=== PATIENT | male | born 1990 | race Caucasian/White ===

== ENCOUNTER 2022-04-05 09:40 | Observation (INO) ==
[2022-04-05] MEDS ORDERED: SODIUM CHLORIDE 0.9% 1000ML 1,000 ML IV STA (10:18)
[2022-04-05 10:41] LABS: Basophils # (auto) 0.02 K/uL (0-0.2); Basophils % (auto) 0.3 %; Eosinophils # (auto) 0.02 K/uL (0-0.5); Eosinophils % (auto) 0.3 %; Hematocrit (blood only) 45.6 % (42-52); Immature Granulocytes # (auto) 0.02 K/uL (0.00-0.02); Immature Granulocytes % (auto) 0.3 %; Lymphocytes % (auto) 15.5 %; Mean Corpuscular Hemoglobin 30.7 pg (25-34); Mean Corpuscular Hgb Conc 37.3 g/dL (32-36); Mean Corpuscular Volume 82.5 fL (80-100); Mean Platelet Volume 10.7 fL (7.4-10.4); Monocytes # (auto) 0.79 K/uL (0.11-0.59); Monocytes % (auto) 10.2 %; Neutrophils % (auto) 73.4 %; Platelet Count 286 K/uL (130-400); RDW Coefficient of Variation 12.6 % (11.5-14.5); RDW Standard Deviation 38.1 fL (36.4-46.3); Red Blood Count 5.53 M/uL (4.7-6.1); White Blood Count 7.75 K/uL (4.8-10.8)
[2022-04-05 10:52] LABS: Albumin Globulin Ratio 1.7 (0.9-2); Albumin Level 4.8 gm/dl (3.4-5.0); BUN Creatinine Ratio 15.8 (10-20); Bilirubin,Total 2.9 mg/dl (0.2-1.0); Calcium 10.1 mg/dl (8.5-10.1); Creatinine Clr Calc Pharmacy 114.5 ml/min; Est GFR (African American) 91.5 ml/min; Globulin 2.8 gm/dl (2.5-4.0); Potassium 3.6 mmol/L (3.5-5.1); Total Protein 7.6 gm/dl (6.0-8.3)
[2022-04-05 11:05] LABS: Appearance Urine Clear (Clear); Bacteria Urine Automated Negative (Negative); Bilirubin Urine 2+ (Negative); Blood Urine Negative (Negative); Color Urine Dark Yellow; Glucose Urine UA Negative (Negative); Ketones Urine 3+ (Negative); Leukocyte Esterase Urine Trace (Negative); Nitrite Urine Negative (Negative); Protein Urine 1+ (Negative); RBC Urine Automated 0-4 /hpf (0-4); Specific Gravity Urine 1.031 (1.000-1.030); Urobilinogen Urine Negative (Negative)
[2022-04-05 11:38] LABS: Amphetamines+Metham, Urine Neg (Neg); Barbiturates, Urine Neg (Neg); Benzodiazepine, Urine Neg (Neg); Cocaine, Urine Neg (Neg); MDMA (Ecstacy), Urine Neg (Neg); Methadone, Urine Neg (Neg); Opiate, Urine Neg (Neg); Phencyclidine, Urine Neg (Neg)
[2022-04-05] MEDS ORDERED: PROCHLORPERAZINE 2 ML IV ONE (13:42)
[2022-04-05] MEDS ORDERED: diphenhydrAMINE 50 MG/ML VIAL IV STA (13:42)
--- NOTE | 2022-04-05 14:34 | History & Physical Report ---
Date of Service April 05, 2022 Assessment & Plan (1) Abdominal pain, acute, epigastric: Plan: - With ongoing, intractable n/v. Ongoing since February, with temporary resolution, and recurrence ~2 weeks ago. - T. bili 2.9, D bili 0.5. AST 26, ALT 47. Lipase 99. No leukocytosis. Repeat GB U/S and CT A/P without acute findings. - We will keep patient n.p.o., provide IVF for hydration, as needed medications for nausea/vomiting/pain. Would consider HIDA scan tomorrow if possible. He does have scheduled pt to see GI this Wednesday. - Also ordered a troponin, given T wave inversions on EKG from 03/30. It is 5.2. Repeat EKG today with resolution of T wave inversions, therefore I believe EKG findings can be attributed to his hypokalemia, as he has not been experiencing chest pain/tightness/palpitations. (2) Cannabis use disorder, mild, abuse: Plan: - Habitual user, but last use > 1 week ago due to concerns for cannabis induced hyperemesis. - UDS positive for marijuana, neg for all other substances. - encourage continued abstinence as this is likely a partial cause for his intractable n/v. (3) Anxiety: Plan: - Continue venlafaxine. Plan: - Admit to med/surg. - SCDs for dvt ppx. defer on chemoppx given age, mobility. - Full Code. History of Present Illness Chief Complaint: intractable nausea and vomiting Primary Care Provider: Dayron Mi Mr. Pacheco is a 32-year-old male with past medical history of anxiety and chronic medical marijuana use who presents today for the fourth time in two weeks with ongoing, intractable nausea and vomiting. This all began with some general abdominal pain and nausea/vomiting at the end of February, at that time patient suspected he may have a stomach bug. This eventually subsided, however over the past 10 days or so he has had recurrence of his symptoms. He is vomiting several times throughout the day, after both solid and liquid intake. Vomiting usually occurs fairly quickly after meal, but has occurred in the absence of a recent meal as well. He is usually able to keep some water down if he drinks it slowly, but even Gatorade or Pedialyte upset his stomach and come back up. Has not had fevers at home, but feels he may have had chills intermittently. He has been discharged from our ED with thao Pineda, which he states does not help much . The only thing that seems to give him relief is taking several hot showers a day. He does report longstanding medical marijuana use, however one of his visits here, he was told this may be marijuana induced hyperemesis so he has not used it in over 1 week, unfortunately symptoms have not resolved. No change to bowel movements, he states he has IBS and frequently does have diarrhea, there may have been several bowel movements that were dark green, but for the most part they are normal for him. He states he had stomach ulcers as a kid, but has not had any blood in his vomit or stools. Recent medication changes he continues to take his venlafaxine daily. In ED, his VS are wnl and stable. Labs significant for t. bili 2.9 and lipase 99, LFTS wnl. UA with ketones, bilirubin, and hyaline casts. Allergies Allergy/AdvReac Type Severity Reaction Status Date / Time Seasonal Allergy Intermediate itchy Uncoded 04/05/22 11:35 eyes, sneeze,runny nose Home Medications Medication Instructions Recorded Confirmed Type famotidine 10 mg tablet (Pepcid AC) 10 mg PO BID PRN #28 tab 03/25/22 04/05/22 Rx loratadine 10 mg tablet (Claritin) 10 mg PO DAILY PRN 03/25/22 04/05/22 History ondansetron 4 mg disintegrating 4 mg PO Q8H PRN #10 tab 03/25/22 04/05/22 Rx tablet venlafaxine 75 mg capsule,extended 75 mg PO QAM 03/25/22 04/05/22 History release 24 hr potassium chloride 20 mEq 20 meq PO QAM 04/05/22 04/05/22 History tablet,extended release Past Med/Surg History Medical History Anxiety disorder, unspecified Cannabis use disorder, mild, abuse Elevated liver enzymes Surgical History Hanna teeth removed Family History Denies family history of Ovarian cancer Prostate cancer Myocardial infarction Breast cancer Colorectal cancer Social History Smoking Status: Former smoker Tobacco Type: Cigarettes Hx Alcohol Use: Yes Alcohol type: beer Hx Substance Use: No Preferred Language: Togolese Communication Ability: Effective Visual Impairment: No Limitations Hearing Ability: Normal marital status: Current Living Situation: Spouse current occupational status: employed current occupation: [employer] Feels Safe at Home: Yes Childhood Exposure to Second-Hand Smoke: No Dental Care, Regularly: Yes Physical Activity Frequency: 3-4 Times per Week Seatbelt Use: always Sunscreen Use: Yes Review of Systems Review of Systems: Constitutional: chills; no weakness, fatigue, myalgias, anorexia, night sweats Eyes: No diplopia, no worsening or blurred vision ENT: normal hearing, no trouble swallowing Respiratory: No cough, sputum, dyspnea at rest or on exertion Cardiovascular: No chest pain, tightness or palpitations Abdomen: abdominal pain with nausea, nonbloody emesis; no constipation or diarrhea : Denies dysuria, hematuria, increased urgency/frequency, urinary retention Musculoskeletal: No joint pain, calf pain, swelling Neurologic: No weakness, numbness/tingling, or balance problems Psychiatric: No anxiety or depression Skin: No rash or itch Physical Exam Physical Exam: General: awake, alert, no apparent distress Head: Normocephalic, atraumatic ENT: PERRL, EOMI, no pharyngeal exudate, mucous membranes moist Chest: Clear to auscultation, on room air, no adventitious breath sounds Cardiac: Regular rate and rhythm, no murmur, no JVD, normal peripheral pulses, good capillary refill Abdominal: TTP in epigastric, LUQ region without rebound or guarding; NABS x 4 quadrants, soft, otherwise nontender to palpation Extremities: Normal inspection, no peripheral edema or erythema, calfs nontender to palpation Psych: Normal mood and affect Neuro: AAO x 3, strength intact bilaterally and rated 5/5, no motor deficits, speech is clear, no peripheral sensory deficits Skin: no rash or erythema Results & Data Results & Data ([facility]) Vital Signs (Past 12 Hours) Vital Signs Temp Pulse Pulse Resp BP BP Pulse Ox 04/05/22 12:00 83 18 116/88 100 05/29/22 10:41 82 17 123/82 99 04/05/22 10:05 36.7 C 105 H 18 133/85 97 Laboratory Results Abnormal lab results 04/05/22 04/05/22 04/05/22 Range/Units 10:30 10:30 10:55 MCHC 37.3 H (32-36) g/dL MPV 10.7 H (7.4-10.4) fL [place] # (Auto) 0.79 H (0.11-0.59) K/uL Sodium 134 L (136-145) mmol/L Glucose 106 H (70-99(Fasting)) mg/dl Total Bilirubin 2.9 H (0.2-1.0) mg/dl Lipase 99 H (11-82) U/L Ur Specific Blunt 1.031 H (1.000-1.030) Urine Protein 1+ H (Negative) Urine Ketones 3+ H (Negative) Urine Bilirubin 2+ H (Negative) Ur Leukocyte Esterase Trace H (Negative) U Hyaline Cast (Auto) 10-30 H (0-5) /lpf U Epithel Cells (Auto) 10-20 H (0-5) /lpf Granular Casts 1-5 H (0) /lpf U Marijuana (THC) Screen (Neg) 04/05/22 Range/Units 10:55 MCHC (32-36) g/dL MPV (7.4-10.4) fL [place] # (Auto) (0.11-0.59) K/uL Sodium (136-145) mmol/L Glucose (70-99(Fasting)) mg/dl Total Bilirubin (0.2-1.0) mg/dl Lipase (11-82) U/L Ur Specific Blunt (1.000-1.030) Urine Protein (Negative) Urine Ketones (Negative) Urine Bilirubin (Negative) Ur Leukocyte Esterase (Negative) U Hyaline Cast (Auto) (0-5) /lpf U Epithel Cells (Auto) (0-5) /lpf Granular Casts (0) /lpf U Marijuana (THC) Screen Pos H (Neg) ECG Additional Comments: Normal sinus rhythm Normal ECG When compared with ECG of 30-MAR-2022 17:58, No significant change was found. T wave inversions previously seen on EKG from 03/30 no longer present. Code Status & VTE Plan Code Status full code. VTE Prophylaxis Plan VTE Prophylaxis will be ordered: Yes Supervising Physician Co-Signing Physician Notes PA Supervision Note: I personally saw and examined the patient. I verified all dockery points and agree with SHARRI Kaufman with the following exceptions and/or additions: This patient is a 32-year-old male with history of anxiety disorder and cannabis use disorder who presents to the ER for the fourth time in 11 days with intractable nausea/vomiting and epigastric pain. He has had elevated bilirubin each time, and on 03/30 had significant elevated AST and ALT as well. He has no known history of liver issues and his right upper quadrant ultrasound and CT abdomen/pelvis on 03/25 were normal however they were not repeated on 03/30 when his LFTs were worse. He has quit vaping marijuana since this all started but has still not had any relief. No fevers or chills. Rest of HPI as outlined above. History and ROS reviewed as above O- Vitals reviewed Gen: AAOx3, NAD, somewhat overweight HEENT: Anicteric sclerae, EOMI CV: RRR no mgr nl S1S2 Pulm: CTAB no wcr Abd: +BS soft mild TTP in epigastric and LUQ regions without guarding or rebound tenderness, ND no masses or hernias Ext: No edema, 2+ DP pulses Skin: No rashes, warm/dry Neuro: Full strength throughout Labs, rads, ECG reviewed A/P-this patient is a 32-year-old male here with persistent and intractable nausea/vomiting as well as epigastric abdominal pain and elevated LFTs. Repeat CT abdomen/pelvis and right upper quadrant ultrasounds here are normal. It is possible he is having gastritis versus less likely acute cholecystitis given he is afebrile, no leukocytosis, and no evidence of such on imaging. Increase Protonix to twice daily As for his hyperbilirubinemia, a direct bilirubin was added on and was only minimally elevated at 0.5, therefore making this mostly indirect hyperbilirubinemia. This could be consistent with Gilbert's syndrome although that would not cause the AST and ALT be elevated like it was on 03/30. It is possible that he could be having some sort of hemolysis, although his hemoglobin is normal making that less likely. Follow LFTs in the morning and consider adding on LDH and haptoglobin if hemoglobin decreases. Consider HIDA scan but not sure if this is possible and holiday weekend. No antibiotics needed at this time. Start capsaicin cream in case of cannabis hyperemesis syndrome PG Care Time/CCT Total # of Minutes Spent Total Time Spent with Patient: Total time spent is greater than 50% in coordination of care (as documented) at patient's floor/unit and/or counseling patient: Coding Level of Care Code INT OBSERVATION CARE 50M LVL 2 Diagnoses Anxiety F41.9 Cannabis use disorder, mild, abuse F12.10 Abdominal pain, acute, epigastric R10.13
--- NOTE | 2022-04-05 15:40 | Ultrasound Report ---
ULTRASOUND RIGHT UPPER QUADRANT ABDOMEN CLINICAL HISTORY: Nausea and vomiting. Elevated hepatic transaminases. COMPARISON STUDY: Abdominal CT dated 03/25/2022 patchy abdominal ultrasound dated 03/25/2022. TECHNIQUE: Real-time, grayscale, and color flow sonography of the right upper quadrant of the abdomen was performed. Images are reviewed in the transverse and longitudinal planes. FINDINGS: Liver: The liver is normal in size and demonstrates heterogeneously increased echotexture indicating steatosis. Fatty sparing is seen adjacent to gallbladder fossa. There is no intrahepatic biliary duct al dilatation. The main portal vein is patent. Gallbladder: Small gallbladder polyps measure up to 5 mm. The gallbladder is otherwise normal in appe arance. No shadowing gallstones are identified. There is no gallbladder wall thickening or pericholec ystic fluid. A sonographic Salcedo's sign is reportedly absent. The common bile duct measures up to 0. 4 cm in diameter. Pancreas: Not visualized due to overlying bowel gas. Right kidney: Survey images of the right kidney demonstrate normal size and echotexture. There is no hydronephrosis. Ascites: None. IMPRESSION: 1. No acute sonographic abnormality is seen in the right upper quadrant. No shadowing gallstones are identified. 2. Hepatic steatosis. 3. Small gallbladder polyps measure up to 5 mm. 4. Nonvisualization of the pancreas. ACT 112: Negative or not required by law. Electronically signed by: Juliocesar Pierre M.D. 04/05/2022 3:39 PM
--- NOTE | 2022-04-05 15:44 | Emergency Department Note ---
History of Present Illness General Chief complaint: Vomiting Stated complaint: VOMITTING FOR THE PAST 4 DAYS Time Seen by Provider: 04/05/22 10:17 History of Present Illness This 32-year-old male patient presents to the emergency department today for evaluation of ongoing nausea and vomiting. This has been present for about 10 days. This is his fourth ED visit for the same. Symptoms were thought to have been due to cannabinoid hyperemesis, as the patient recently changed a cartridge for his medical marijuana used for anxiety just prior to the onset of his symptoms. He has not used any further marijuana in almost 2 weeks, but his symptoms have persisted. The patient does seem to get some relief with hot showers and capsaicin cream. He has been prescribed Pepcid and Zofran which she is using regularly without significant improvement. He is scheduled to see GI on Wednesday due to elevated LFTs and bilirubin, but with his ongoing symptoms, inability to keep down food and fluids, even Gatorade or Pedialyte, he decided to come to the ED again for repeat evaluation. Patient denies any fever. He d enies any specific abdominal pain. No new symptoms. No recent injury. Patient states at the present time, he is not feeling "too bad". He notes he has not had any vomiting upon arrival, and that he generally only vomits after he eats or drinks, but does tolerate water if he sips that extremely slowly. Home Medications Medication Instructions Recorded Confirmed Type famotidine 10 mg tablet (Pepcid AC) 10 mg PO BID PRN #28 tab 03/25/22 04/05/22 Rx loratadine 10 mg tablet (Claritin) 10 mg PO DAILY PRN 03/25/22 04/05/22 History ondansetron 4 mg disintegrating 4 mg PO Q8H PRN #10 tab 03/25/22 04/05/22 Rx tablet venlafaxine 75 mg capsule,extended 75 mg PO QAM 03/25/22 04/05/22 History release 24 hr potassium chloride 20 mEq 20 meq PO QAM 04/05/22 04/05/22 History tablet,extended release Allergies Allergy/AdvReac Type Severity Reaction Status Date / Time Seasonal Allergy Intermediate itchy Uncoded 04/05/22 11:35 eyes, sneeze,runny nose Past Med/Surg History Medical History Anxiety disorder, unspecified Cannabis use disorder, mild, abuse Elevated liver enzymes Surgical History [place] teeth removed Family History Denies family history of Ovarian cancer Prostate cancer Myocardial infarction Breast cancer Colorectal cancer Social History Smoking Status: Former smoker Tobacco Type: Cigarettes Hx Alcohol Use: Yes Alcohol type: beer Hx Substance Use: No Preferred Language: Portuguese Communication Ability: Effective Visual Impairment: No Limitations Hearing Ability: Normal marital status: Current Living Situation: Spouse current occupational status: employed current occupation: Document Coordinator Feels Safe at Home: Yes Childhood Exposure to Second-Hand Smoke: No Dental Care, Regularly: Yes Physical Activity Frequency: 3-4 Times per Week Seatbelt Use: always Sunscreen Use: Yes Review of Systems A total of 10 systems reviewed and were otherwise negative Physical Exam Vital Signs Vital Signs - 24 hr 04/05/22 10:05 04/05/22 10:41 04/05/22 12:00 Temperature 36.7 C Temperature Source Temporal Artery Scan Pulse Rate 105 H Pulse Rate [Apical] 82 83 Respiratory Rate 18 17 18 Respiratory Depth Normal Normal Blood Pressure 133/85 Blood Pressure [Right Arm] 123/82 116/88 Blood Pressure Mean 101 Blood Pressure Mean [Right Arm] 95 97 Pulse Oximetry 97 99 100 Oxygen Delivery Method Room Air Room Air Room Air Sepsis New/Unexplained Change in Mental Status No Sepsis Action Taken by Nursing No Action Required 04/05/22 15:09 Temperature Temperature Source Pulse Rate Pulse Rate [Apical] 76 Respiratory Rate 18 Respiratory Depth Blood Pressure Blood Pressure [Right Arm] 125/81 Blood Pressure Mean Blood Pressure Mean [Right Arm] 95 Pulse Oximetry 98 Oxygen Delivery Method Room Air Sepsis New/Unexplained Change in Mental Status Sepsis Action Taken by Nursing VITALS: Vitals are noted on the nurse's note and reviewed by myself. Vital signs stable. GENERAL: This is a 32-year-old white male, in no acute distress, nondiaphoretic, well-developed well-nourished. SKIN: The skin was without rashes, erythema, edema, or bruising. There is no tenting of the skin. Capillary refill less than 2 seconds. HEAD: Normocephalic atraumatic. EYES: Conjunctivae without injection, sclerae without icterus. MOUTH: Mucous membranes moist. Tonsils are not enlarged. Pharynx without erythema or exudate. Uvula midline. Airway patent. Tongue does not deviate. NECK: Supple without nuchal rigidity. No lymphadenopathy. No JVD. HEART: Regular rate and rhythm without murmurs gallops or rubs. LUNGS: Clear to auscultation bilaterally without wheezes, rales or rhonchi. No retractions or accessory muscle use. ABDOMEN: Positive bowel sounds x 4. Soft, nontender, without masses or organomegaly. Salcedo sign negative. No guarding or rebound tenderness. MUSCULOSKELETAL: No muscle atrophy, erythema, or edema noted. Full range of motion without joint tenderness in all extremities. No tenderness to palpation. Normal gait. Strength 5/5 throughout. NEURO: Patient was alert and oriented to person place and time. No focal neurological deficits. Course Course The patient was seen and evaluated as above. An order was placed for continuous cardiac monitoring. The monitor shows a normal sinus rhythm at a rate of 76 bpm. IV access obtained, labs drawn. Patient medicated with IV fluids. Labs reviewed by myself. I discussed the findings with the patient at bedside. Recommended admission. Patient was agreeable. He is complaining of increased nausea at this time. He was medicated with Benadryl and Compazine, as he notes this seems to have helped in the past. I discussed the case with my attending. I discussed case with the line manager I discussed the case with Dr. Haile, [facility] hospitalist physician. She did agree to see and evaluate the patient for admission. Please see hospitalist dictation regarding ongoing management and care of this patient Administered Medications Discontinued Medications Sodium Chloride (Nss 1000ml) 1,000 mls @ 999 mls/hr IV .Q1H1M STA Stop: 04/05/22 11:18 Last Infusion: 04/05/22 14:50 Dose: 0 mls/hr Documented by: [id number] Admin: 04/05/22 11:15 Dose: 999 mls/hr Documented by: [id number] Medical Decision Making Differential Diagnosis Gastroenteritis, food borne illness, infections, appendicitis, diverticulitis, inflammatory bowel disease, obstruction, GI bleed, biliary pathology, volvulus, cannabinoid hyperemesis, as well as other pathologies. Medical Records Attestation: I reviewed the patient's medical records. Home Medications Current Medication List: was personally reviewed by me Laboratory Data Attestation: I reviewed the patient's lab results. No leukocytosis, anemia, thrombocytopenia. Renal, hepatic function, and electrol ytes without significant abnormality. Total bilirubin is elevated at 2.9. This is down from most recent total bilirubin test completed last week. Lipase mildly elevated at 99. Urinalysis with 3+ ketones, no bacteria, 2+ bilirubin. UDS positive for marijuana. COVID-19 testing negative. Result diagrams: 04/05/22 10:30 04/05/22 10:30 Lab Results 04/05/22 04/05/22 04/05/22 Range/Units 10:30 10:30 10:55 WBC 7.75 (4.8-10.8) K/uL RBC 5.53 (4.7-6.1) M/uL Hgb 17.0 (14.0-18.0) g/dL Hct 45.6 (42-52) % MCV 82.5 (80-100) fL MCH 30.7 (25-34) pg MCHC 37.3 H (32-36) g/dL RDW Std Deviation 38.1 (36.4-46.3) fL RDW Coeff of Lani 12.6 (11.5-14.5) % Plt Count 286 (130-400) K/uL MPV 10.7 H (7.4-10.4) fL Immature Gran % (Auto) 0.3 % Neut % (Auto) 73.4 % Lymph % (Auto) 15.5 % Forrest % (Auto) 10.2 % Eos % (Auto) 0.3 % Baso % (Auto) 0.3 % Neut # (Auto) 5.70 (1.4-6.5) K/uL Lymph # (Auto) 1.20 (1.2-3.4) K/uL Forrest # (Auto) 0.79 H (0.11-0.59) K/uL Eos # (Auto) 0.02 (0-0.5) K/uL Baso # (Auto) 0.02 (0-0.2) K/uL Immature Gran # (Auto) 0.02 (0.00-0.02) K/uL Sodium 134 L (136-145) mmol/L Potassium 3.6 (3.5-5.1) mmol/L Chloride 98 (98-107) mmol/L Carbon Dioxide 25 (21-32) mmol/L Anion Gap 11 (3-11) BUN 19 (6-23) mg/dl Creatinine 1.20 (0.6-1.4) mg/dl Est Cr Clr Drug Dosing 114.5 ml/min Est GFR ( Amer) 91.5 ml/min Est GFR (Non-Af Amer) 79.0 ml/min BUN/Creatinine Ratio 15.8 (10-20) Glucose 106 H (70-99(Fasting)) mg/dl Calcium 10.1 (8.5-10.1) mg/dl Total Bilirubin 2.9 H (0.2-1.0) mg/dl AST 26 (13-39) U/L ALT 47 (7-52) U/L Alkaline Phosphatase 52 (34-104) U/L Total Protein 7.6 (6.0-8.3) gm/dl Albumin 4.8 (3.4-5.0) gm/dl Globulin 2.8 (2.5-4.0) gm/dl Albumin/Globulin Ratio 1.7 (0.9-2) Lipase 99 H (11-82) U/L Urine Color Dark Yellow Urine Appearance Clear (Clear) Urine pH 5.0 (4.5-7.5) Ur Specific [place] 1.031 H (1.000-1.030) Urine Protein 1+ H (Negative) Urine Glucose (UA) Negative (Negative) Urine Ketones 3+ H (Negative) Urine Blood Negative (Negative) Urine Nitrite Negative (Negative) Urine Bilirubin 2+ H (Negative) Urine Urobilinogen Negative (Negative) Ur Leukocyte Esterase Trace H (Negative) Urine WBC (Auto) 1-5 (0-5) /hpf Urine RBC (Auto) 0-4 (0-4) /hpf U Hyaline Cast (Auto) 10-30 H (0-5) /lpf U Epithel Cells (Auto) 10-20 H (0-5) /lpf Urine Bacteria (Auto) Negative (Negative) Granular Casts 1-5 H (0) /lpf Urine Opiates Screen (Neg) Ur Methadone, Qual (Neg) Urine Barbiturates (Neg) Ur Phencyclidine (PCP) (Neg) U Amphetamin/Meth Scrn (Neg) MDMA (Ecstasy) Screen (Neg) U Benzodiazepines Scrn (Neg) Ur Cocaine Metabolite (Neg) U Marijuana (THC) Screen (Neg) SARS-CoV-2, RNA, NAAT (NEGATIVE) 04/05/22 04/05/22 Range/Units 10:55 14:42 WBC (4.8-10.8) K/uL RBC (4.7-6.1) M/uL Hgb (14.0-18.0) g/dL Hct (42-52) % MCV (80-100) fL MCH (25-34) pg MCHC (32-36) g/dL RDW Std Deviation (36.4-46.3) fL RDW Coeff of Lani (11.5-14.5) % Plt Count (130-400) K/uL MPV (7.4-10.4) fL Immature Gran % (Auto) % Neut % (Auto) % Lymph % (Auto) % Forrest % (Auto) % Eos % (Auto) % Baso % (Auto) % Neut # (Auto) (1.4-6.5) K/uL Lymph # (Auto) (1.2-3.4) K/uL Forrest # (Auto) (0.11-0.59) K/uL Eos # (Auto) (0-0.5) K/uL Baso # (Auto) (0-0.2) K/uL Immature Gran # (Auto) (0.00-0.02) K/uL Sodium (136-145) mmol/L Potassium (3.5-5.1) mmol/L Chloride (98-107) mmol/L Carbon Dioxide (21-32) mmol/L Anion Gap (3-11) BUN (6-23) mg/dl Creatinine (0.6-1.4) mg/dl Est Cr Clr Drug Dosing ml/min Est GFR ( Amer) ml/min Est GFR (Non-Af Amer) ml/min BUN/Creatinine Ratio (10-20) Glucose (70-99(Fasting)) mg/dl Calcium (8.5-10.1) mg/dl Total Bilirubin (0.2-1.0) mg/dl AST (13-39) U/L ALT (7-52) U/L Alkaline Phosphatase (34-104) U/L Total Protein (6.0-8.3) gm/dl Albumin (3.4-5.0) gm/dl Globulin (2.5-4.0) gm/dl Albumin/Globulin Ratio (0.9-2) Lipase (11-82) U/L Urine Color Urine Appearance (Clear) Urine pH (4.5-7.5) Ur Specific [place] (1.000-1.030) Urine Protein (Negative) Urine Glucose (UA) (Negative) Urine Ketones (Negative) Urine Blood (Negative) Urine Nitrite (Negative) Urine Bilirubin (Negative) Urine Urobilinogen (Negative) Ur Leukocyte Esterase (Negative) Urine WBC (Auto) (0-5) /hpf Urine RBC (Auto) (0-4) /hpf U Hyaline Cast (Auto) (0-5) /lpf U Epithel Cells (Auto) (0-5) /lpf Urine Bacteria (Auto) (Negative) Granular Casts (0) /lpf Urine Opiates Screen Neg (Neg) Ur Methadone, Qual Neg (Neg) Urine Barbiturates Neg (Neg) Ur Phencyclidine (PCP) Neg (Neg) U Amphetamin/Meth Scrn Neg (Neg) MDMA (Ecstasy) Screen Neg (Neg) U Benzodiazepines Scrn Neg (Neg) Ur Cocaine Metabolite Neg (Neg) U Marijuana (THC) Screen Pos H (Neg) SARS-CoV-2, RNA, NAAT NEGATIVE (NEGATIVE) Blood Pressure Blood Pressure Findings: Normal blood pressure MDM Narrative This 32-year-old male patient presents to the emergency department today for evaluation of ongoing nausea and vomiting. This has been persistent for almost 2 weeks. It is believed to be due to cannabinoid hyperemesis, as it began right after he changed his most recent cartridge for his medical marijuana he uses for anxiety. Patient has had some elevated transaminases and bilirubin. He was referred to gastroenterology and is scheduled to see them in 2 days, but due to his ongoing/persistent nausea, vomiting, and inability to keep down any food or fluids except for minimal amounts of water, it was felt that he would likely benefit from inpatient care. The patient was agreeable with this plan. He was hydrated with IV fluids and medicated with Compazine and Benadryl. Please see hospitalist dictation regarding ongoing management care of this patient. The chart was completed utilizing [employer] Speech voice recognition software. Grammatical errors, random word insertions, pronoun errors, and incomplete sentences are an occasional consequence of this system due to software limitations, ambient noise, and hardware issues. Any formal questions or concerns about the content, text, or information contained within the body of this dictation should be directly addressed to the provider for clarification. Impression & Plan Nausea & vomiting, Cannabis use disorder, mild, abuse Discharge Plan Visit Data Chief Complaint: Vomiting Stated Complaint: VOMITTING FOR THE PAST 4 DAYS ED Provider: Vasquez Hector ED Midlevel Provider: Edwige Candelaria Discharge Problem: Nausea & vomiting, Cannabis use disorder, mild, abuse Patient Disposition: Admitted As Inpatient Forms Stand Alone Forms: [facility] Prescriptions Prescriptions: No Action potassium chloride 20 mEq tablet extended release 20 meq PO QAM RF: 0 venlafaxine 75 mg capsule,extended release 24hr 75 mg PO QAM RF: 0 loratadine [Claritin] 10 mg Tablet 10 mg PO DAILY PRN (Reason: Seasonal allergies) RF: 0 famotidine [Pepcid AC] 10 mg tablet 10 mg PO BID PRN (Reason: reflux) Qty: 28 RF: 0 ondansetron 4 mg tablet,disintegrating 4 mg PO Q8H PRN (Reason: nausea and vomiting) Qty: 10 RF: 0 Referrals Referrals: Dayron Mi [Primary Care Provider] -
[2022-04-05 15:50] LABS: Troponin I High Sensitivity 5.2 pg/ml (0-20)
[2022-04-05 15:55] LABS: Bilirubin Direct 0.5 mg/dl (0-0.2)
[2022-04-05] MEDS ORDERED: OPTIRAY 320 100ml IV ONE (16:12)
--- NOTE | 2022-04-05 16:28 | CT Scan Report ---
CT SCAN OF THE ABDOMEN AND PELVIS WITH IV CONTRAST CLINICAL HISTORY: Nausea and vomiting. COMPARISON STUDY: Abdominal CT dated 03/25/2022. TECHNIQUE: Following the IV administration of 94 cc of Optiray 320, CT scan of the abdomen and pelvi s is performed from the lung bases to the proximal femora. Images are reviewed in the axial, sagittal , and coronal planes. IV contrast was administered without complication. A dose lowering technique wa s utilized adhering to the principles of ALARA. CT DOSE: 844.24 mGy.cm FINDINGS: Lung bases: The heart is normal in size and without pericardial effusion. The lung bases are clear. Liver: The contrast-enhanced liver is normal in size and contour. Question mild steatosis. There is n o intrahepatic biliary ductal dilatation. The hepatic veins and portal veins are patent. Gallbladder: Unremarkable. Spleen: Normal in size and attenuation. Pancreas: Unremarkable. Adrenal glands: Unremarkable. Kidneys: The contrast enhanced kidneys are normal in size and without hydronephrosis. The kidneys enh ance symmetrically. Abdominal vasculature: The abdominal aorta is normal in course and caliber. Bowel: There is no bowel obstruction. The appendix is well-visualized and normal. Peritoneum: There is no intraperitoneal free air or abdominal ascites. Lymphadenopathy: None. Pelvic viscera: The bladder, prostate, and seminal vesicles are normal as visualized. Skeletal structures: No lytic or blastic lesions are seen. IMPRESSION: No acute infectious or inflammatory findings are identified in the abdomen or pelvis. No change from 03/25/2022. ACT 112: Negative or not required by law. Electronically signed by: Juliocesar Pierre M.D. 04/05/2022 4:25 PM
[2022-04-05] MEDS ORDERED: PANTOprazole 40 MG in SYRINGE 0 ML IV ONE (16:29)
[2022-04-05] MEDS ORDERED: CAPSAICIN CR 0.075% 60 GM TUBE EXT PRN (17:42)
[2022-04-05] MEDS ORDERED: POLYETHYLENE (MIRALAX) 17 GM PACK PO PRN (17:42)
[2022-04-05] MEDS ORDERED: PROMETHAZINE HCL 25 MG in SODIUM CHLORIDE 0.9% 50 ML IV PRN (17:42)
[2022-04-05] MEDS ORDERED: ONDANSETRON INJ 2 MG/ML 2 ML VIAL IV PRN (17:42)
[2022-04-05] MEDS ORDERED: LORazepam 0.5 MG TAB PO STA (17:57)
[2022-04-05] MEDS: LACTATED RINGER'S 1,000 ML IV SCH (18:05)
[2022-04-05] MEDS: PANTOprazole 40 MG in SYRINGE 0 ML IV SCH (21:09)
[2022-04-05] MEDS ORDERED: MELATONIN 3 MG TAB PO PRN (23:06)
[2022-04-06] MEDS: LACTATED RINGER'S 1,000 ML IV SCH ×2 (01:32→08:11)
[2022-04-06 06:02] LABS: Basophils # (auto) 0.04 K/uL (0-0.2); Basophils % (auto) 0.6 %; Eosinophils # (auto) 0.11 K/uL (0-0.5); Eosinophils % (auto) 1.6 %; Hematocrit (blood only) 41.6 % (42-52); Hemoglobin 15.2 g/dL (14.0-18.0); Immature Granulocytes # (auto) 0.02 K/uL (0.00-0.02); Immature Granulocytes % (auto) 0.3 %; Lymphocytes # (auto) 1.11 K/uL (1.2-3.4); Lymphocytes % (auto) 16.5 %; Mean Corpuscular Hemoglobin 30.3 pg (25-34); Mean Corpuscular Hgb Conc 36.5 g/dL (32-36); Mean Corpuscular Volume 82.9 fL (80-100); Mean Platelet Volume 10.6 fL (7.4-10.4); Monocytes # (auto) 0.81 K/uL (0.11-0.59); Neutrophils # (auto) 4.64 K/uL (1.4-6.5); Platelet Count 215 K/uL (130-400); RDW Coefficient of Variation 12.8 % (11.5-14.5); RDW Standard Deviation 38.3 fL (36.4-46.3); Red Blood Count 5.02 M/uL (4.7-6.1); White Blood Count 6.73 K/uL (4.8-10.8)
--- NOTE | 2022-04-06 06:31 | Electrocardiogram Report ---
Test Reason : Blood Pressure : / mmHG Vent. Rate : 072 BPM Atrial Rate : 072 BPM P-R Int : 136 ms QRS Dur : 090 ms QT Int : 402 ms P-R-T Axes : 031 018 -01 degrees QTc Int : 440 ms Normal sinus rhythm Normal ECG When compared with ECG of 30-MAR-2022 17:58, Nonspecific T wave abnormality Lateral leads no longer present Confirmed by Tom Cook ([id number]) on 04/06/2022 6:30:54 AM Referred By: REFERRED SELF Confirmed By:Tom Cook
[2022-04-06 06:38] LABS: Albumin Level 4.1 gm/dl (3.4-5.0); BUN Creatinine Ratio 14.2 (10-20); Bilirubin Direct 0.5 mg/dl (0-0.2); Bilirubin,Total 3.1 mg/dl (0.2-1.0); Calcium 9.2 mg/dl (8.5-10.1); Creatinine Clr Calc Pharmacy 129.6 ml/min; Est GFR (African American) 106.4 ml/min; Est GFR (Non-African American) 91.8 ml/min; Magnesium 1.9 mg/dl (1.7-2.4); Potassium 3.1 mmol/L (3.5-5.1); Total Protein 6.3 gm/dl (6.0-8.3)
[2022-04-06] MEDS ORDERED: POTASSIUM CHLORIDE CRTAB 20 MEQ TABCR PO STA (08:14)
[2022-04-06] MEDS: PANTOprazole 40 MG in SYRINGE 0 ML IV SCH (08:17)
--- NOTE | 2022-04-06 08:24 | Hospitalist Progress Note ---
Date of Service April 06, 2022 Assessment & Plan (1) Abdominal pain, acute, epigastric: Plan: - With ongoing, intractable n/v. Ongoing since February, with temporary resolution, and recurrence ~2 weeks ago. - T. bili 2.9, D bili 0.5. AST 26, ALT 47. Lipase 99. No leukocytosis. Repeat GB U/S and CT A/P without acute findings. - We will keep patient n.p.o., provide IVF for hydration, as needed medications for nausea/vomiting/pain. Would consider HIDA scan tomorrow if possible. He does have scheduled pt to see GI this Wednesday. - Also ordered a troponin, given T wave inversions on EKG from 03/30. It is 5.2. Repeat EKG today with resolution of T wave inversions, therefore I believe EKG findings can be attributed to his hypokalemia, as he has not been experiencing chest pain/tightness/palpitations. Could be gastritis vs cyclic vomiting Increased PPI to BID NPO currently, will check HIDA to r/o GI pathology. TB elevations likely 2nd to a Gilbert's type syndrome (but did have elevation in AST/ALT last trip in ER) IVF/pain control/antiemetics Continue to monitor (2) Cannabis use disorder, mild, abuse: Plan: - Habitual user, but last use > 1 week ago due to concerns for cannabis induced hyperemesis. - UDS positive for marijuana, neg for all other substances. - encourage continued abstinence as this is likely a partial cause for his intractable n/v. (3) Anxiety: Plan: - Continue venlafaxine. (4) Elevated bilirubin: (5) Hypokalemia: Plan: normal on admission, low on AM draw 3.1 (prior low from n/v as well) Added to IVF, ordered 40meq PO as well. Mag 1.9 *did have PPI increased to BID (6) Elevated liver enzymes: Plan: prior elevation in AST/ALT, CTAP without abnormality TB remains elevated, direct unchanged, ?Gilbert's Does have outpt f/u with GI later this week reportedly Considering HIDA if able to perform over holiday weekend (7) Anxiety disorder, unspecified: Plan: - Admit to med/surg. - SCDs for dvt ppx. defer on chemoppx given age, mobility. - Full Code. Admission and Anticipated Discharge Date Admission Date: April 05, 2022 Subjective Patient evaluated this morning. Doing well. No increased abdominal pain/nausea/vomiting. States hasn't really had much to eat since . Discussed Protonix increased, could be gastritis related. Stated capsaicin cream helped initially but not at home. What works best is hot showers. Stated hasn't used MMJ in approximately 14 days. Could have lingering effects and rec'd continued abstinence. Discussed GI appt-- he has one tomorrow. Will check to see if able to do HIDA today, if not will advance diet/see how he tolerates and possible d/c later today with follow up tomorrow. Passing lots of gas but hasn't had a bowel movement. Discussed anxiety -- recommended Vistaril. Agreeable to try, has never used in the past. Results & Data Results & Data ([facility]) Vital Signs (Past 12 Hours) Vital Signs Temp Pulse Resp BP BP Pulse Ox 04/06/22 06:17 36.4 C L 90 16 123/86 99 04/05/22 22:08 36.8 C 70 16 151/84 H 98 PG Care Time/CCT Total # of Minutes Spent Total Time Spent with Patient: Total time spent is greater than 50% in coordination of care (as documented) at patient's floor/unit and/or counseling patient: Coding Diagnoses Abdominal pain, acute, epigastric R10.13 Cannabis use disorder, mild, abuse F12.10 Anxiety F41.9 Elevated bilirubin R17 Hypokalemia E87.6 Elevated liver enzymes R74.8 Anxiety disorder, unspecified F41.9
[2022-04-06] MEDS ORDERED: VENLAFAXINE HCL XR 75 MG CAPXR PO SCH (09:00)
[2022-04-06] MEDS ORDERED: POTASSIUM CHLORIDE 10 MEQ in LACTATED RINGER'S 1,000 ML IV SCH (09:00)
[2022-04-06] MEDS ORDERED: MAGNESIUM SULFATE / D5W 1 GM/100 ML BAG IV ONE (09:41)
[2022-04-06] MEDS ORDERED: hydrOXYzine HCl 10 MG TAB PO PRN (09:42)
--- NOTE | 2022-04-06 13:38 | Discharge Summary ---
Date of Service April 06, 2022 Admission HPI Per Admitting Provider Mr. Pacheco is a 32-year-old male with past medical history of anxiety and chronic medical marijuana use who presents today for the fourth time in two weeks with ongoing, intractable nausea and vomiting. This all began with some general abdominal pain and nausea/vomiting at the end of February, at that time patient suspected he may have a stomach bug. This eventually subsided, however over the past 10 days or so he has had recurrence of his symptoms. He is vomiting several times throughout the day, after both solid and liquid intake. Vomiting usually occurs fairly quickly after meal, but has occurred in the absence of a recent meal as well. He is usually able to keep some water down if he drinks it slowly, but even Gatorade or Pedialyte upset his stomach and come back up. Has not had fevers at home, but feels he may have had chills intermittently. He has been discharged from our ED with thao Pineda, which he states does not help much. The only thing that seems to give him relief is taking several hot showe rs a day. He does report longstanding medical marijuana use, however one of his visits here, he was told this may be marijuana induced hyperemesis so he has not used it in over 1 week, unfortunately symptoms have not resolved. No change to bowel movements, he states he has IBS and frequently does have diarrhea, there may have been several bowel movements that were dark green, but for the most pa rt they are normal for him. He states he had stomach ulcers as a kid, but has not had any blood in his vomit or stools. Recent medication changes he continues to take his venlafaxine daily. In ED, his VS are wnl and stable. Labs significant for t. bili 2.9 and lipase 99, LFTS wnl. UA with ketones, bilirubin, and hyaline casts. Principal Diagnosis Abdominal Pain, Gastritis, Cyclic Vomiting Discharge Data Allergies Allergy/AdvReac Type Severity Reaction Status Date / Time Seasonal Allergy Intermediate itchy Uncoded 04/05/22 11:35 eyes, sneeze,runny nose Consultations 04/05/22 14:40 ED Decision to Admit Stat Ordered Studies 04/05/22 14:32 US gallbladder Stat 04/05/22 15:46 CT abd pelvis IV con only Urgent Hospital Course (1) Abdominal pain, acute, epigastric: Multiple trips to ER with ongoing intractable n/v since February Also with hx anxiety and MMJ use, but has been abstinent for fourteen days per patient TB elevated (direct 0.5) on admit, AST 26, ALT 47. lipase 99 US Gallbladder and CTAP without acute findings Provided IVF, antiemetics prn Started Protonix, twice daily for possible gastritis --> improvement in symptoms and this is continued at discharge. Ordered diet, tolerated without repeat increase in any n/v or abdominal pain * States no BM for 1-2 days at a time -- discussed bowel regimen at home if not moving consistently which could contribute to n/v. * TSH wnl 03/30. * Moved bowels prior to d/c Discussed as HIDA scan unavailable on holiday, and patient with f/u Dr Gonzalez tomorrow, able to discharge with outpatient follow-up (2) Cannabis use disorder, mild, abuse: Habitual user, but last use > 1 week ago due to concerns for cannabis induced hyperemesis. UDS positive for marijuana, neg for all other substances. - encourage continued abstinence as this is likely a partial cause for his intractable n/v. --> discussed continued abstinence of such and patient has been off for approximately FOURTEEN days at this point. Capsaicin cream effective in past, not anymore. noted improvement with hot shower -- discussed likely could be cyclic vomiting given improvement with hot showers Started and continued Vistaril for anxiety symptoms and hopefully this adjunct therapy with his Effexor (which can be increased outpatient) for anxiety symptoms as rec'd no further MMJ use (3) Anxiety: Continued venlafaxine -- increase in f/u with PCP vs titration of vistaril as added during inpatient stay and has been effective (4) Elevated bilirubin: indirect, suspect underlying Gilbert's/similar outpatient GI follow up already scheduled for tomorrow with Dr Gonzalez (5) Hypokalemia: normal on admission but 3.1 on repeat (on 20meq PO at home but hadn't been taking) low on AM draw 3.1 (prior low from n/v as well) Added to IVF, ordered 40meq PO as well while was NPO Mag 1.9 *did have PPI increased to BID and continuing this at discharge IVF discontinued and to continue home PO medication as usually taking (6) Elevated liver enzymes: prior elevation in AST/ALT, CTAP without abnormality TB remains elevated, direct unchanged, ?Gilbert's Considering HIDA if able to perform over holiday weekend --> NOT ABLE TO BE DONE --> F/u 04/[address] Gonzalez already arranged (7) Anxiety disorder, unspecified: Effexor continued added Vistaril, effective and continued f/u PCP about titration of either Total Time Total Time Spent Total Time Spent (In Minutes): 60 Discharge Plan Discharge Items Patient Disposition: Home - Self-Care Reason For Visit: VOMITTING FOR THE PAST 4 DAYS Discharge Diagnosis: Gastritis Activity: Resume your previous activity Non-emergency contact: Primary Care Provider Call non-emergency contact if: you have any medication questions, your pain is not controlled and you have a fever Follow-up/Referrals: Cristi Gonzalez MD [Physician] - (04/07) Dayron Mi [Primary Care Provider] - Diet: Low Fat Addtl Attending Provider Instructions: You have been hospitalized for abdominal pain, nausea, inability to keep up with oral intake. Bowel rest, IV fluids were provided. Imaging did not show any abnormality. Elevation in bilirubin could be genetic and can have follow up with GI as already scheduled. HIDA scan not able to be performed on the holiday, but your diet has been advanced and tolerating well. Some discomfort could also be related to a gastritis, and your protonix was increased to TWICE daily. A new prescription has been sent for this as well. As discussed, please keep up with a bowel regimen at home and if not moving bowels every 1-2 days, consider over the counter stool softener/laxative. As we have talked about, hot showers vs the topical cream are concerning for cy clic vomiting syndrome from Cannibis and while you have abstained for over two weeks, it is recommended to have continued abstinence of this to see if resolution possible. You have also been sent prescription for Vistaril to use for sleep/anxiety symptoms. These are 10mg tablets, and you can use these up to three times daily. (Your PCP can increase if effective, but we want to try lowest dose). You should follow up with GI, Dr Gonzalez, tomorrow as already scheduled. Please follow up with your PCP in the next 7-10days to monitor your progress. Pending Studies at Discharge: No Stand-Alone Forms: My [facility] Medications and DC Order Prescriptions: New hydroxyzine HCl 10 mg Tablet 10 mg PO TID PRN (Reason: anxiety) Qty: 30 RF: 0 pantoprazole 40 mg tablet,delayed release (DR/EC) 40 mg PO BID Qty: 60 RF: 0 Continued potassium chloride 20 mEq tablet extended release 20 meq PO QAM RF: 0 venlafaxine 75 mg capsule,extended release 24hr 75 mg PO QAM RF: 0 loratadine [Claritin] 10 mg Tablet 10 mg PO DAILY PRN (Reason: Seasonal allergies) RF: 0 ondansetron 4 mg tablet,disintegrating 4 mg PO Q8H PRN (Reason: nausea and vomiting) Qty: 10 RF: 0 Discontinued famotidine [Pepcid AC] 10 mg tablet 10 mg PO BID PRN (Reason: reflux) Qty: 28 RF: 0 Discharge Orders: Discharge Order (Routine); Ordered 04/06/22 Ordered By: Gabby Grant Admission Data Admit Date/Time: 04/05/22 14:56 Attending Provider: Cisco Desir Admit Provider: Daniela Haile Primary Care Provider: Dayron Mi Other Providers: Daniela Haile Coding Level of Care Code 69839 OBS Care - Discharge Diagnoses Abdominal pain, acute, epigastric R10.13 Cannabis use disorder, mild, abuse F12.10 Anxiety F41.9 Elevated bilirubin R17 Hypokalemia E87.6 Elevated liver enzymes R74.8 Anxiety disorder, unspecified F41.9
== END 2022-04-06 14:57 | disposition home or self-care (01) ==
LOC: ED 09:40 → EDINP 09:40 → SUATTDRO 14:56 → 3W 17:37
DX: F41.9 Anxiety disorder, unspecified; F12.10 Cannabis abuse, uncomplicated; R10.13 Epigastric pain; Z87.891 Personal history of nicotine dependence; R17 Unspecified jaundice; Z79.899 Other long term (current) drug therapy; R74.8 Abnormal levels of other serum enzymes; E87.6 Hypokalemia